=== PATIENT | male | born 1960 | race Caucasian/White ===

== ENCOUNTER 2016-12-15 06:37 | Inpatient (IN) ==
--- NOTE | 2016-12-14 21:24 | Discharge Summary ---
<Viktoria Harris Manolo - Last Filed: 12/14/16 21:21> Date of Encounter: 12/14/16 - Discharge Diagnosis (1) Rotator cuff tear arthropathy of right shoulder Priority: Primary Status: Acute (2) HTN (hypertension) Priority: Secondary Status: Chronic Qualifiers: Hypertension type: essential hypertension Qualified Code(s): I10 - Essential (primary) hypertension - Discharge Medications Home Medications: Diclofenac Potassium 50 mg PO BID 12/15/16 [History] Lisinopril [Zestril] 10 mg PO DAILY 12/15/16 [History] Oxycodone HCl [Oxaydo] 7.5 mg PO Q6HR PRN 12/15/16 [History] Simvastatin [Zocor] 20 mg PO HS 12/15/16 [History] Allergies/Adverse Reactions: Allergies No Known Allergies Allergy (Verified 12/15/16 07:28) Primary care physician: PCP NO - Patient Status Disposition: Home, Self-Care Condition: Good - Discharge Instructions Follow Up With: ANANDA,PCP [Primary Care Provider] - - Hospital Course Hospital course: Mr. Parker is a 56 year old male - Time Spent with Patient Total time spent providing and/or coordinating discharge services: <Devonte Pegueroh - Last Filed: 12/16/16 06:26> Date of Encounter: 12/16/16 Time of Encounter: 06:26 - Discharge Diagnosis (1) Rotator cuff tear arthropathy of right shoulder Priority: Primary Status: Acute (2) HTN (hypertension) Priority: Secondary Status: Chronic Qualifiers: Hypertension type: essential hypertension Qualified Code(s): I10 - Essential (primary) hypertension Primary care physician: PCP NO - Patient Status Functional capacity at discharge: independent ambulation Overall status at discharge: patient is progressing back to baseline - Hospital Course Hospital course: Mr. Parker is a 56 year old male The patient had an uneventful postoperative course. They received antibiotics and physical therapy and were discharged in stable condition. There will follow -up in the office in 2 weeks. - Time Spent with Patient Total time spent providing and/or coordinating discharge services:
--- NOTE | 2016-12-15 06:50 | History & Physical Report ---
Date of Encounter: 12/15/16 Time of Encounter: 06:49 24 Hour HP Update - Instructions Instructions: If the History and Physical is less than 30 days old and was completed prior to A.M. admission and or procedure and has NOT been updated on calendar day of procedure please complete this update prior to performing procedure. - Update Patient reports changes in Medical Condition: No Changes in examination, assessment, or condition: No Changes in Medication: No Preop tests/diagnostics Reviewed: Yes Surgery Remains Indicated: Yes Consent for Planned Operative Procedure(s) Verified: Yes - Pre-Operative Checklist Preoperative Checklist Indicated: No Prophylactic Antibiotic Ordered: Yes Is VTE Prophylaxis Indicated?: Yes
[2016-12-15] MEDS ORDERED: CeFAZolin Pre 2,000 MG/100 ML 2,000 MG/100 ML BAG IVPB ONE (07:28)
[2016-12-15] MEDS ORDERED: Albuterol 2.5 MG/3 ML NEBULIZER IH ONE (07:28)
[2016-12-15] MEDS ORDERED: Lidocaine -MPF 1% 2 ML VIAL ID ONE (07:28)
[2016-12-15] MEDS ORDERED: Ringers Solution, Lactated 1,000 ML IVC SCH ×3 (07:30→10:52)
[2016-12-15] MEDS ORDERED: Famotidine 20 MG/2 ML VIAL IVP ONE (07:31)
[2016-12-15] MEDS ORDERED: Gabapentin 300 MG CAPSULE PO ONE (07:32)
--- NOTE | 2016-12-15 07:49 | Anesthesia Evaluation PreOp ---
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 12/14/16 [Rx] OxyCODONE Immed Rel [Roxicodone 5 MG] 5 - 10 mg PO Q6HR PRN #40 tablet 12/14/16 [Rx] Allergies No Known Allergies Allergy (Verified 12/15/16 07:28) - Meds/Allergy Pre-op Review Medications Reviewed: Yes Allergies Reviewed: Yes Beta Blockers on Current Med List: No Anesthesia Results - Labs HGB 14.6 HCT 42.2 Plt 226 - Imaging EKG: report reviewed (SR) Anesthesia Exam O2 Sat Height 1.75 m Height 1.75 m Weight 78.018 kg Weight 78.018 kg O2 Sat by Pulse Oximetry 98 Vital Signs Temp Pulse Resp BP Pulse Ox 98.5 F 70 18 136/91 98 12/15/16 06:53 12/15/16 06:53 12/15/16 06:53 12/15/16 06:53 12/15/16 06:53 Height: 5'9 Weight: 172 lbs NPO (# of Hours): MN Pain Scale: 0 - HEENT Pupil (Motor): Pupils equal, EOMI Mallampati: II Teeth: Normal Oral Opening: Greater than 3 - 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
[2016-12-15] MEDS ORDERED: ROPIVACAINE HCL/PF 0.5% 30 ML VIAL ONE (08:02)
[2016-12-15] MEDS ORDERED: Bupivacaine/Clonidine Syringe 1 EACH SYRINGE ONE (08:03)
[2016-12-15] MEDS ORDERED: Tetracaine/PF 20 MG/2 ML AMPUL ONE (08:03)
--- NOTE | 2016-12-15 08:38 | Anesthesia Procedures ---
Date of Encounter: 12/15/16 Time of Encounter: 08:36 Procedures: Anesthesia - Nerve Block Procedure Date: 12/15/16 Time: 08:36 Allergies/Adv Reactions: [id number] Pre-op Diagnosis: R shoulder RTC arthropathy Surgical Procedure: R TSR, Reverse Checklist: Correct Patient Identifier, Correct procedure, History checked Correct side: Right Blood Thinner: No Monitor Applied: EKG, BP, Pulse Oximetry Supplemental Oxygen via Nasal Cannula (L/min): 3 Sedation: Versed (mg): 4 Indication: Post Op Analgesia (requested by Dr. Peguero) Pre-op Neuro Deficits: No Block Type: Supraclavicular, Other (ICB, SCP) Catheter placed: No Sterile Technique: Yes Ultrasound used: Yes Anatomy identified: Yes Visual spread of Local: Yes Neuro Stimulation: No Blood on Needle Aspiration: No Smooth Injection of Local: Yes Pain with Injection of Local: No Prep: Chlorhexadine Needle: 22 x 50 mm Stimuplex Local: 0.25% Bupivicaine w/Clonidine 20 mcg/cc (15mL injected total for SCP, ICB ), Tetracaine (2mL 1%), Ropivacaine (30mL 0.5%) Number of Attempts: 1 Complications: None/effective block Vitals: see Tawana MORENO's documentation
[2016-12-15] MEDS ORDERED: Lidocaine -MPF 2% 2 ML VIAL ONE (09:04)
[2016-12-15] MEDS ORDERED: *HR* Midazolam HCl 2 MG/2 ML VIAL ONE (09:04)
[2016-12-15] MEDS ORDERED: *HR* Propofol 200 MG/20 ML VIAL IVP ONE (09:04)
[2016-12-15] MEDS ORDERED: *HR* HYDROmorphone (PF) 1 MG/ML SYRINGE IVP PRN (09:09)
[2016-12-15] MEDS ORDERED: Ondansetron 4 MG/2 ML VIAL IVP PRN ×2 (09:09→10:52)
[2016-12-15] MEDS ORDERED: *HR* Labetalol 100 MG/20 ML MDV IVP PRN (09:09)
[2016-12-15] MEDS ORDERED: Ondansetron 4 MG/2 ML VIAL ONE (09:17)
--- NOTE | 2016-12-15 09:24 | Orthopedic Operative Note ---
Date of procedure: 12/15/16 Pre-op diagnosis: Right shoulder cuff tear arthropathy Post-op diagnosis: same Procedure: Procedure: Right Total Shoulder Replacment Reverse, biceps tenodesis Estimated blood loss: 100 cc Hardware: Metal and polyethylene replacement: Arthrex large glenoid baseplate, 2 4.5 screws. 1 6.5 screw, 42+4 glenosphere, 10 humeral stem, poly insert 3 Exam Under anesthesia: Full motion and no instability Procedural Notes: Patient had irreparable tear supraspinatus tendon had a tear of the subscap with subluxation of the biceps. Operative procedure: The patient was brought to the operating room and placed on the operating room table. After general anesthesia was administered the operative shoulder was examined. Findings were noted. The patient was placed in the modified beachchair position. All pressure points were padded appropriately. And the head was stabilized in the neutral position. The operative extremity was prepped and draped in the sterile surgical fashion. The patient received IV antibiotics prior to skin incision. A standard deltopectoral approach was made to the operative shoulder. Incision was made to the skin and subcutaneous tissue,hemo stasis was obtained with Bovie cautery. Using careful blunt dissection the cephalic vein was identified and mobilized medially. The deltopectoral interval was developed and the clavipectoral fascia was incised. The subscap upper third was torn and was released off the lesser tuberosity and tagged with #2 FiberWire suture it was irreparable. The humerus was dislocated patient noted to have irreparable tear supraspinatus tendon, and the humeral cut was made along the anatomic neck. Anterior and posterior Bankart retractors were placed to expose the glenoid. The glenoid guide was seated and the centering hole was made. It was reamed with the appropriate reamer. The large baseplate was seated and secured with ( 2) 4.5 screws and one 6.5 screw. The baseplate was irrigated and dried and the 2+4 Glenosphere was seated and secured with the Mark taper. The Mark taper was tested and found to be secure the humerus was redislocated and prepared with the diaphyseal reamers, followed by a broaching process up to the appropriate size 10 in the patient's anatomic version. The metaphyseal reamer was then utilized. Trial reduction found the shoulder to be relocatable. Trial components were removed and drill holes were placed in the lesser tuberosity. They were filled with #5 FiberWire suture incorporating the biceps tendon for later biceps tenodesis. The appropriate 10 stem was impacted in place in the patient's anatomic version. Trial reduction found the shoulder to be relocatable and stable with the appropriate 3 Trial component was removed and the real 3 Radha was seated and secured the shoulder was reduced. The shoulder had excellent motion and excellent stability and no evidence of dislocation. The deep tissue was irrigated with pulse irrigation. The subscap was irreparable the biceps was tenodesed. The deltopectoral interval was closed with a running #1 PDS suture, subcutaneous tissue was irrigated and closed with 0 PDS suture, the skin was closed with Dermabond. The patient was placed in a sterile dressing, abduction brace and extubated. The patient was then transferred to the recovery room in stable condition. Anesthesia: CARITO Surgeon: Devonte Peguero Hand Silvering Supervisor: Lea Ni Condition: stable Disposition: PACU
--- NOTE | 2016-12-15 10:22 | Anesthesia Evaluation Post Op ---
Date of Encounter: 12/15/16 Time of Encounter: 10:30 - Vital Signs Vital Signs: Vital Signs/O2 Sat/Glucose, Most Current Temp Pulse Resp BP Pulse Ox 12/15/16 10:15 53 18 129/75 100 12/15/16 10:05 53 18 123/67 98 12/15/16 09:55 57 18 130/65 100 12/15/16 09:45 97.3 F L 55 20 136/81 99 12/15/16 08:17 71 143/89 97 12/15/16 08:08 18 136/91 98 12/15/16 07:53 98.5 F 70 18 136/91 98 12/15/16 06:53 98.5 F 70 18 136/91 98 - Lungs Lungs: Clear Ascult./Percussion - Airway Airway: Non-obstructed - Cardiovascular Regular Rate - Mental Status Mental Status: Alert & Oriented, Answers Appropriately - Pain Pain Scale: 0 - Nausea Vomiting Nausea Vomiting: Not Present - Hydration Hydration: Tolerates oral liquids - Discharge PostOp Status: Transfer Patient to floor
[2016-12-15 10:28] LABS: Hematocrit 40.9 % (37.5-50.1); Hemoglobin 13.9 g/dL (12.9-16.9)
[2016-12-15] MEDS ORDERED: Naloxone 0.4 MG/ML INJ IVP PRN (10:52)
[2016-12-15] MEDS ORDERED: MOM Conc 10 ML UD.LIQ PO PRN (10:52)
[2016-12-15] MEDS ORDERED: Temazepam 15 MG CAPSULE PO PRN (10:52)
[2016-12-15] MEDS ORDERED: Sennosides 8.6 MG TABLET PO PRN (10:52)
[2016-12-15] MEDS ORDERED: *HR* OxyCODONE Immed Rel 5 MG TABLET PO PRN (10:52)
[2016-12-15] MEDS ORDERED: *HR* Phenylephrine 10 MG/ML VIAL ONE (11:29)
[2016-12-15] MEDS: ceFAZolin 2,000 MG in D5% in Water 100 ML IVPB SCH ×2 (14:35→23:09)
[2016-12-15] MEDS: *HR* OxyCODONE Immed Rel 5 MG TABLET PO PRN ×2 (14:42→22:23)
[2016-12-15] MEDS: *HR* Enoxaparin 30 MG/0.3 ML SYRINGE SQ SCH (16:38)
[2016-12-15] MEDS ORDERED: *HR* Enoxaparin 30 MG/0.3 ML SYRINGE SQ SCH (18:00)
[2016-12-15] MEDS: *HR* HYDROmorphone (PF) 1 MG/ML SYRINGE IVP PRN (23:58)
[2016-12-16] MEDS: *HR* OxyCODONE Immed Rel 5 MG TABLET PO PRN ×2 (03:09→07:33)
[2016-12-16] MEDS: *HR* Enoxaparin 30 MG/0.3 ML SYRINGE SQ SCH (05:28)
[2016-12-16] MEDS: *HR* HYDROmorphone (PF) 1 MG/ML SYRINGE IVP PRN (05:28)
[2016-12-16 05:38] LABS: Hematocrit 36.5 % (37.5-50.1); Hemoglobin 12.5 g/dL (12.9-16.9)
--- NOTE | 2016-12-16 06:27 | Orthopedics Progress Note ---
Date of Encounter: 12/16/16 Time of Encounter: 06:26 - Assessment and Plan (1) Rotator cuff tear arthropathy of right shoulder Current Visit: Yes Status: Acute (2) HTN (hypertension) Current Visit: Yes Status: Chronic Qualifiers: Hypertension type: essential hypertension Qualified Code(s): I10 - Essential (primary) hypertension Subjective Interval history: Patient was seen this morning doing well without complaints. Afebrile vital signs stable. Operative extremity: Neurovascularly intact Dressing clean dry and intact Calves nontender Assessment and plan: Continue with postoperative care Hemoglobin 12.5 discharged today Objective Vital signs: Vital Signs Temp Pulse Resp BP Pulse Ox 12/16/16 03:35 98.1 F 75 12 145/81 98 12/16/16 00:28 98.2 F 79 14 135/76 97 12/15/16 20:01 98.4 F 80 14 123/80 95 12/15/16 16:06 97.9 F 74 16 124/83 96 12/15/16 13:29 62 16 128/84 100 12/15/16 12:34 9.6 F L 62 16 128/84 100 12/15/16 11:37 97.2 F L 50 16 127/78 97 12/15/16 11:00 96.8 F L 54 16 139/76 99 12/15/16 10:49 97.1 F L 56 20 131/83 100 12/15/16 10:25 58 18 129/69 96 12/15/16 10:15 53 18 129/75 100 12/15/16 10:05 53 18 123/67 98 12/15/16 09:55 57 18 130/65 100 12/15/16 09:45 97.3 F L 55 20 136/81 99 12/15/16 08:17 71 143/89 97 12/15/16 08:08 18 136/91 98 12/15/16 07:53 98.5 F 70 18 136/91 98 12/15/16 06:53 98.5 F 70 18 136/91 98 Intake and Output 12/15/16 12/15/16 12/16/16 15:59 23:59 07:59 Intake Total 240 / 240 540 / 540 770 / 770 Output Total 100 / 100 0 / 0 Balance 140 / 140 540 / 540 770 / 770 Intake: IV Fluids 200 / 200 Ancef 2,000 MG In 200 / 200 Dextrose 5% 100 ML @ 200 mls/hr IVPB Q8HR [facility] Rx#: [id number] Oral 240 / 240 340 / 340 770 / 770 Output: Urine 0 / 0 Estimated Blood Loss 100 / 100 Other: Meal Lunch Percent of Meal Consumed 35% # Voids 1 1 Weight 79.52 kg Patient Weight 12/16/16 23:59 Weight 79.52 kg - Labs CBC & BMP: 12/16/16 05:10 Labs: Abnormal lab results Hgb 12.5 g/dL (12.9-16.9) L 12/16/16 05:10 Hct 36.5 % (37.5-50.1) L 12/16/16 05:10 - VTE Documentation of Mechanical Device: Venous foot pump, device Consult Discharge Plan - Plan Referrals: NO,PCP [Primary Care Provider] -
[2016-12-16 07:09] VITALS: BP 166/93
== END 2016-12-16 09:45 | disposition home or self-care (01) | DRG 483 ==
LOC: SAMDAY 06:37 → 3NENU 10:43
PROVIDERS: ADMIT Orthopaedic Surgery; ATTEND Orthopaedic Surgery